=== PATIENT | male | born 1960 | race Caucasian/White ===

== ENCOUNTER 2016-12-19 04:58 | Emergency (ER) | payer BC ==
[~2016-12-19] VITALS: Ht 170.2 cm; Wt 94.0 kg
[~2016-12-19 04:58] MED LIST: ALBU1AER9 PO; FEXO1TAB46 PO; IBUP-1050 PO; MULTTAB5 PO; OMEP20CA9 PO
[2016-12-19 05:01] VITALS: TEMP 36.5; Ht 170.2 cm; Wt 94.0 kg
[2016-12-19] MEDS ORDERED: ONDANSETRON INJ 2 MG/ML 2 ML VIAL IV STA (05:18)
[2016-12-19] MEDS ORDERED: KETOROLAC TROMETHAMINE 30 MG/ML VIAL IV STA (05:18)
[2016-12-19] MEDS ORDERED: SODIUM CHLORIDE 0.9% 1000ML 1,000 ML IV ONE (05:30)
[2016-12-19 05:36] LABS: BASO % 0.5 %; BASO ABS # 0.03 K/uL (0-0.2); COMPLETE YES; EOS % 5.6 %; HEMATOCRIT 45.3 % (42-52); IG% 0.3 %; LYMPH % 26.6 %; LYMPH ABS # 1.67 K/uL (1.2-3.4); MEAN CELL VOLUME 88.3 fL (80-100); MEAN CORPUSCULAR HGB CONC 35.1 g/dl (32-36); MEAN PLATELET VOLUME 9.8 fL (7.4-10.4); MONO % 11.3 %; NEUT % 55.7 %; PLATELET COUNT 207 K/uL (130-400); RED BLOOD COUNT 5.13 M/uL (4.7-6.1); WHITE BLOOD COUNT 6.28 K/uL (4.8-10.8)
[2016-12-19 05:44] LABS: BUN/CREATININE RATIO 16.6 (10-20); CALCIUM 8.6 mg/dl (8.5-10.1); CREATININE 0.88 mg/dl (0.60-1.40); POTASSIUM 4.1 mmol/L (3.5-5.1)
[2016-12-19 05:46] LABS: ALB/GLOB RATIO 1.3 (0.9-2)
[2016-12-19 06:45] LABS: URINE APPEARANCE TURBID (CLEAR); URINE COLOR DK YELLOW; URINE NITRITE NEG (NEG); URINE SPECIFIC GRAVITY 1.038 (1.000-1.030); UROBILINOGEN NEG (NEG); ZZUR CULT IF INDIC CLEAN CATCH NO
[2016-12-19 06:53] LABS: MANUAL MICROSCOPIC REQUIRED? NO; REVIEW REQ? YES; URINE BILIRUBIN NEG (NEG)
--- NOTE | 2016-12-19 07:07 | DIAGNOSTIC IMAGING REPORT ---
CT SCAN OF THE ABDOMEN AND PELVIS WITHOUT IV CONTRAST CLINICAL HISTORY: Right flank pain. COMPARISON STUDY: KUB dated 03/12/2014. TECHNIQUE: CT scan of the abdomen and pelvis is performed from the lung bases to the proximal femora. Images are reviewed in the axial, sagittal, and coronal planes. IV contrast was not administered for this examination as per the referring clinician. Automated dose control exposure was utilized. CT DOSE: 1322.33 mGy.cm FINDINGS: Lung bases: The heart is top normal in size and without pericardial effusion. The lung bases are clear. There is a tiny hiatal hernia. Liver: The unenhanced liver enlarged measuring 19.3 cm in length. The liver demonstrates diminished attenuation consistent with hepatic steatosis. Fatty sparing is noted adjacent to gallbladder fossa. There is no intrahepatic biliary ductal dilatation. Gallbladder: Unremarkable. Spleen: Normal in size and attenuation. Pancreas: Unremarkable. Adrenal glands: Unremarkable. Kidneys: The unenhanced kidneys are normal in size. There is a 7 mm obstructing calculus in the mid right ureter seen on axial image #272 at the level of L4-L5. This causes mild right hydroureteronephrosis. There are least 2 additional nonobstructing calculi in the right kidney and a single nonobstructing calculus in the left kidney measuring up to 3 mm. There is no left-sided hydronephrosis. There is no evidence of contour deforming renal mass lesion. Abdominal vasculature: The abdominal aorta is normal in course and caliber. Bowel: The small bowel and colon are normal in course and caliber. The appendix is well-visualized and normal. Peritoneum: There is no intraperitoneal free air or abdominal ascites. There is a small fat-containing umbilical hernia. Lymphadenopathy: None. Pelvic viscera: The is decompressed and not well evaluated. The prostate and seminal vesicles are normal as imaged. Surgical clips are seen along the spermatic cord bilaterally. Skeletal structures: The skeletal structures are osteopenic. There is a mild and age indeterminant superior endplate compression deformity of L1. No lytic or blastic lesions are seen. IMPRESSION: 1. There is a 7 mm obstructing calculus in the mid right ureter. This causes mild right hydroureteronephrosis. 2. Additional bilateral nonobstructing renal calculi as above. 3. Hepatomegaly and hepatic steatosis. Electronically signed by: Mannie Spangler M.D. 12/19/2016 7:06 AM Dictated Date/Time: 12/19/2016 6:57 AM
[2016-12-19] MEDS ORDERED: OXYCODONE IR HOME PACK PO ONE (07:30)
[2016-12-19] MEDS ORDERED: TAMS0.4C38 PO (07:30)
[2016-12-19] MEDS ORDERED: ONDANSETRON HOME PACK 4MG OD TAB PO ONE (07:30)
[2016-12-19] MEDS ORDERED: OXYC1TAB3 PO (07:30)
[2016-12-19] MEDS ORDERED: ONDA4TAB10 SL (07:30)
[2016-12-19 07:54] VITALS: BP 119/82; PULSE 70; O2SAT 99
--- NOTE | 2016-12-20 05:01 | EMERGENCY ROOM VISIT NOTE ---
History First contact with patient: 05:10 Chief Complaint: KIDNEY STONE Stated Complaint: KIDNEY STONE History of Present Illness The patient is a 56 year old male who presents to the Emergency Room with complaints of right flank pain worsening over the past one to 2 days. The patient reports a past history of kidney stones, and states this feels similar. He started having some dysuria symptoms but no gross hematuria. His pain does radiate from his right flank to his right groin. No fever or chills. No chest pain, chest tightness, or shortness of breath. The patient has not had relief with [id number]-licodvs analgesics. He considers himself otherwise usually healthy and states this pain as a colicky 8/10 at the worst. Review of Systems More than 10 systems were reviewed and otherwise negative with the exception of history of present illness. Past Medical/Surgical History Medical Problems: (1) Esophageal Reflux Family History Cancer Diabetes mellitus Kidney disease Kidney stones Social History Smoking Status: Never Smoker Alcohol Use: occasionally Marital Status: Housing Status: lives with family Occupation Status: employed Current/Historical Medications Scheduled Multiple Vitamins W/ Minerals (Centrum), 1 TAB PO DAILY Omeprazole (Prilosec), 20 MG PO DAILY Ondasetron Odt (Zofran Odt), 4 MG SL Q6H Oxycodone Immediate Rel Tab (Roxicodone Ir), 1-2 TAB PO Q6 Tamsulosin Hcl (Flomax), 0.4 MG PO DAILY Allergies Uncoded Allergies: SWORDFISH,MARLIN (Allergy, Severe, TONGUE SWELLS, 12/19/16) Physical Exam Vital Signs Date Time Temp Pulse Resp B/P (MAP) Pulse Ox O2 Delivery O2 Flow Rate FiO2 12/19/16 07:54 70 19 119/82 99 12/19/16 06:39 73 19 136/90 99 Room Air 12/19/16 05:01 36.5 66 18 149/99 96 Room Air Pain Rating (0-10): 2.0 Physical Exam VITALS: Vitals are noted on the nurse's note and reviewed by myself. Vital signs stable. GENERAL: Well-developed, well-nourished, white male, who is pacing in the emergency department room. He appears quite uncomfortable on presentation. HEAD: Normocephalic atraumatic. HEART: Regular rate and rhythm without murmurs gallops or rubs. LUNGS: Clear to auscultation bilaterally without wheezes, rales or rhonchi. No retractions or accessory muscle use. ABDOMEN: Positive normal bowel sounds x 4. Soft, nontender, without masses or organomegaly. No guarding or rebound tenderness. No CVA tenderness. MUSCULOSKELETAL: No muscle atrophy, erythema, or edema noted. Full range of motion without joint tenderness in all extremities. Medical Decision & Procedures ER Provider Diagnostic Interpretation: CT SCAN OF THE ABDOMEN AND PELVIS WITHOUT IV CONTRAST CLINICAL HISTORY: Right flank pain. COMPARISON STUDY: KUB dated 03/12/2014. TECHNIQUE: CT scan of the abdomen and pelvis is performed from the lung bases to the proximal femora. Images are reviewed in the axial, sagittal, and coronal planes. IV contrast was not administered for this examination as per the referring clinician. Automated dose control exposure was utilized. CT DOSE: 1322.33 mGy.cm FINDINGS: Lung bases: The heart is top normal in size and without pericardial effusion. The lung bases are clear. There is a tiny hiatal hernia. Liver: The unenhanced liver enlarged measuring 19.3 cm in length. The liver demonstrates diminished attenuation consistent with hepatic steatosis. Fatty sparing is noted adjacent to gallbladder fossa. There is no intrahepatic biliary ductal dilatation. Gallbladder: Unremarkable. Spleen: Normal in size and attenuation. Pancreas: Unremarkable. Adrenal glands: Unremarkable. Kidneys: The unenhanced kidneys are normal in size. There is a 7 mm obstructing calculus in the mid right ureter seen on axial image #272 at the level of L4-L5. This causes mild right hydroureteronephrosis. There are least 2 additional nonobstructing calculi in the right kidney and a single nonobstructing calculus in the left kidney measuring up to 3 mm. There is no left-sided hydronephrosis. There is no evidence of contour deforming renal mass lesion. Abdominal vasculature: The abdominal aorta is normal in course and caliber. Bowel: The small bowel and colon are normal in course and caliber. The appendix is well-visualized and normal. Peritoneum: There is no intraperitoneal free air or abdominal ascites. There is a small fat-containing umbilical hernia. Lymphadenopathy: None. Pelvic viscera: The is decompressed and not well evaluated. The prostate and seminal vesicles are normal as imaged. Surgical clips are seen along the spermatic cord bilaterally. Skeletal structures: The skeletal structures are osteopenic. There is a mild and age indeterminant superior endplate compression deformity of L1. No lytic or blastic lesions are seen. IMPRESSION: 1. There is a 7 mm obstructing calculus in the mid right ureter. This causes mild right hydroureteronephrosis. 2. Additional bilateral nonobstructing renal calculi as above. 3. Hepatomegaly and hepatic steatosis. Laboratory Results 12/19/16 05:14 Red Blood Count 5.13, Mean Corpuscular Volume 88.3, Mean Corpuscular Hemoglobin 31.0, Mean Corpuscular Hemoglobin Concent 35.1, Mean Platelet Volume 9.8, Neutrophils (%) (Auto) 55.7, Lymphocytes (%) (Auto) 26.6, Monocytes (%) (Auto) 11.3, Eosinophils (%) (Auto) 5.6, Basophils (%) (Auto) 0.5, Neutrophils # (Auto ) 3.50, Lymphocytes # (Auto) 1.67, Monocytes # (Auto) 0.71, Eosinophils # (Auto ) 0.35, Basophils # (Auto) 0.03 12/19/16 05:14 Test 12/19/16 05:14 White Blood Count 6.28 K/uL (4.8-10.8) Red Blood Count 5.13 M/uL (4.7-6.1) Hemoglobin 15.9 g/dL (14.0-18.0) Hematocrit 45.3 % (42-52) Mean Corpuscular Volume 88.3 fL (80-100) Mean Corpuscular Hemoglobin 31.0 pg (25-34) Mean Corpuscular Hemoglobin Concent 35.1 g/dl (32-36) Platelet Count 207 K/uL (130-400) Mean Platelet Volume 9.8 fL (7.4-10.4) Neutrophils (%) (Auto) 55.7 % Lymphocytes (%) (Auto) 26.6 % Monocytes (%) (Auto) 11.3 % Eosinophils (%) (Auto) 5.6 % Basophils (%) (Auto) 0.5 % Neutrophils # (Auto) 3.50 K/uL (1.4-6.5) Lymphocytes # (Auto) 1.67 K/uL (1.2-3.4) Monocytes # (Auto) 0.71 K/uL (0.11-0.59) Eosinophils # (Auto) 0.35 K/uL (0-0.5) Basophils # (Auto) 0.03 K/uL (0-0.2) RDW Standard Deviation 39.2 fL (36.4-46.3) RDW Coefficient of Variation 12.3 % (11.5-14.5) Immature Granulocyte % (Auto) 0.3 % Immature Granulocyte # (Auto) 0.02 K/uL (0.00-0.02) Urine Color DK YELLOW Urine Appearance TURBID (CLEAR) Urine pH 5.0 (4.5-7.5) Urine Specific [place] 1.038 (1.000-1.030) Urine Protein 1+ (NEG) Urine Glucose (UA) NEG (NEG) Urine Ketones TRACE (NEG) Urine Occult Blood 3+ (NEG) Urine Nitrite NEG (NEG) Urine Bilirubin NEG (NEG) Urine Urobilinogen NEG (NEG) Urine Leukocyte Esterase NEG (NEG) Urine WBC (Auto) 1-5 /hpf (0-5) Urine RBC (Auto) >30 /hpf (0-4) Urine Hyaline Casts (Auto) 1-5 /lpf (0-5) Urine Epithelial Cells (Auto) 5-10 /lpf (0-5) Urine Bacteria (Auto) NEG (NEG) Urine Crystals See comments (NONE PRSENT) Urine Pathogenic Casts /lpf (0) Anion Gap 4.0 mmol/L (3-11) Est Creatinine Clear Calc Drug Dose 103.7 ml/min Estimated GFR () 112.1 Estimated GFR (Non- 96.7 BUN/Creatinine Ratio 16.6 (10-20) Calcium Level 8.6 mg/dl (8.5-10.1) Total Bilirubin 0.5 mg/dl (0.2-1) Aspartate Amino Transf (AST/SGOT) 21 U/L (15-37) Alanine Aminotransferase (ALT/SGPT) 36 U/L (12-78) Alkaline Phosphatase 73 U/L (45-117) Total Protein 7.4 gm/dl (6.4-8.2) Albumin 4.2 gm/dl (3.4-5.0) Globulin 3.2 gm/dl (2.5-4.0) Albumin/Globulin Ratio 1.3 (0.9-2) Lipase 143 U/L (73-393) Medications Administered Medications (Trade) Dose Ordered Sig/Yamila Route Start Time Stop Time Status Last Admin Dose Admin Sodium Chloride 1,000 ml @ 999 mls/hr Q1H1M ONCE IV 12/19/16 05:30 12/19/16 06:30 DC 12/19/16 05:41 999 MLS/HR Ketorolac Tromethamine (Toradol Inj) 30 mg NOW STAT IV 12/19/16 05:18 12/19/16 05:20 DC 12/19/16 05:41 30 MG Ondansetron HCl (Zofran Inj) 4 mg NOW STAT IV 12/19/16 05:18 12/19/16 05:20 DC 12/19/16 05:41 4 MG Ondansetron HCl (ZOFRAN ODT 4MG Home Pack) 1 homepack UD ONCE PO 12/19/16 07:30 12/19/16 07:31 DC 12/19/16 07:50 1 HOMEPACK Oxycodone HCl (Roxicodone Immediate Rel 5MG Home Pack) 1 homepack UD ONCE PO 12/19/16 07:30 12/19/16 07:31 DC 12/19/16 07:50 1 HOMEPACK ED Course Physical exam and history were performed. Nursing notes and EMR were reviewed. Patient appears to have right flank pain worsening over the past one to 2 days. His pain is colicky in nature, and clinically he is concerning for a ureteral calculi. IV access was established and labs were obtained. I offered multiple pain medications to the patient, and he was amenable to Toradol. CT scan was performed. The patient's blood work is as above and was reviewed. He does not have a significantly elevated white blood cell count, gross anemia, bandemia, or significant electrolyte imbalance. Lipase and transaminases were nondiagnostic. Urine is with blood but no obvious infection. The patient CT scan does confirm a 7 mm mid ureter calculi. I discussed options of care at the patient including admission to the hospital for pain control and possible urology evaluation. The patient felt comfortable with discharge home and outpatient urology care. The patient will be given a urine Sylvie as well as a course of OxyIR, Zofran, and Flomax. He was thoroughly invited back to the emergency department with any new, worsening, or concerning symptoms. He voiced understanding of this plan and rated his discomfort a 1/10 at the time of departure. The chart was completed utilizing [employer] Speech Voice Recognition Software. Grammatical errors, random word insertions, pronoun errors, and incomplete sentences are an occasional consequence of this system due to software limitations, ambient noise, and hardware issues. Any formal questions or concerns about the content, text, or information contained within the body of this dictation should be directly addressed to the provider for clarification. . Medical Decision Differential diagnosis: Etiologies such as renal colic, appendicitis, diverticulitis, mesenteric ischemia, aortic pathology, infections, inflammatory bowel disease, PUD, biliary pathology, UTI, as well as others were entertained. Impression Primary Impression: Right ureteral calculus Departure Information Dispostion Home / Self-Care Condition GOOD Prescriptions Tamsulosin Hcl (FLOMAX) 0.4 Mg Cap 0.4 MG PO DAILY for 7 Days, #7 CAP Prov: Jovany Ritter PA-C 12/19/16 Ondasetron Odt (ZOFRAN ODT) 4 Mg Tab 4 MG SL Q6H for Nausea, #12 TAB Initial treatment Prov: Jovany Ritter PA-C 12/19/16 Oxycodone Immediate Rel Tab (ROXICODONE IR) 5 Mg Tab 1-2 TAB PO Q6 for Pain, #24 TAB Initial treatment Prov: Jovany Ritter PA-C 12/19/16 Referrals Toby Oshea M.D. Forms HOME CARE DOCUMENTATION FORM, IMPORTANT VISIT INFORMATION Patient Instructions My [facility] Additional Instructions You were seen and evaluated today on an emergency basis only. This is not a substitute for, or an effort to provide, complete comprehensive medical care. It is not possible to recognize and treat all injuries or illnesses in a single emergency department visit. For this reason it is recommended that you followup with Urology, Dr. Oshea's office, by telephone tomorrow morning to arrange a follow-up appointment. Let them know you were seen in the emergency department to help facilitate care. For baseline pain relief you may alternate ibuprofen and acetaminophen every 4 hours for pain control. Take 600 mg ibuprofen (Advil) and then 4 hours later take 1000 mg acetaminophen (Tylenol). Do not take more than 3000 mg acetaminophen in a single day. Oxycodone (OxyIR) 5mg: Take ONE or TWO pills every SIX hours for breakthrough pain. Avoid alcohol, operating machinery or dangerous equipment, working on ladders or roofs, DRIVING, or situations where being under the influence may be dangerous. It is recommended to use an zeva-bal-dtgtaxi stool softener such as Colace, 100mg twice daily while taking this medication to avoid constipation. Zofran 1 tablet every 6 hrs as needed for nausea. Take Flomax once daily Strain your urine. If you are able to capture the stone take this with you to see urology. You are welcome to return to the emergency department anytime with new, worsening, or concerning symptoms.
[2016-12-28] MEDS ORDERED: [UNRECOGNIZED DRUG - OTHER] PO (07:43)
== END 2016-12-19 07:55 | disposition home or self-care (01) ==
LOC: C.EDB 04:59
DX: N20.1 Calculus of ureter (principal); K21.9 Gastro-esophageal reflux disease without esophagitis; Z80.9 Family history of malignant neoplasm, unspecified; Z83.3 Family history of diabetes mellitus; Z84.1 Family history of disorders of kidney and ureter; Z79.899 Other long term (current) drug therapy

== ENCOUNTER → 2016-12-24 | Outpatient (CLI) | payer BC ==
[~2016-12-24] MED LIST changes: -ALBU1AER9 PO; -FEXO1TAB46 PO; -IBUP-1050 PO; +ONDA4TAB10 SL; +OXYC1TAB3 PO; +TAMS0.4C38 PO; +[UNRECOGNIZED DRUG - OTHER] PO
--- NOTE | 2016-12-24 19:03 | DIAGNOSTIC IMAGING REPORT ---
CHEST 2 VIEWS ROUTINE CLINICAL HISTORY: Nephrolithiasis COMPARISON STUDY: 02/28/2014 FINDINGS: The cardiac and mediastinal contours are normal. There is no evidence of focal pulmonary consolidation. There is no evidence of failure. No pleural effusions are visualized.[ IMPRESSION: No active disease in the chest. Electronically signed by: Sina Mccauley M.D. 12/24/2016 7:01 PM Dictated Date/Time: 12/24/2016 7:01 PM
--- NOTE | 2016-12-24 19:04 | DIAGNOSTIC IMAGING REPORT ---
KUB CLINICAL HISTORY: Nephrolithiasis. FINDINGS: 2 AP supine abdominal radiographs are compared to study dated 03/12/2014 and correlated with abdominal CT dated 12/19/2016. There is a nonobstructed abdominal bowel gas pattern noting moderate colonic fecal retention. A 5 mm right ureteral calculus has not significantly changed from 12/19/2016. This projects below the right transverse process of L4. No additional calculi are seen projecting over either kidney or along the course of left ureter. The bony structures appear intact. IMPRESSION: Unchanged appearance of a 5 mm right ureteral calculus as compared to 12/19/2016. Electronically signed by: Mannie Spangler M.D. 12/24/2016 7:02 PM Dictated Date/Time: 12/24/2016 7:00 PM
== END | disposition home or self-care (01) ==
LOC: C.CPL 17:34
PROVIDERS: ATTEND Urology
DX: N20.0 Calculus of kidney (principal)

== ENCOUNTER → 2016-12-30 | Outpatient (CLI) | payer BC ==
[~2016-12-30] MED LIST changes: -ONDA4TAB10 SL; -OXYC1TAB3 PO; -TAMS0.4C38 PO
--- NOTE | 2016-12-30 18:40 | DIAGNOSTIC IMAGING REPORT ---
KUB CLINICAL HISTORY: Nephrolithiasis. FINDINGS: 2 AP supine abdominal radiographs are compared to study dated 12/24/2016 and correlated with abdominal CT dated 12/19/2016. There is a nonobstructed abdominal bowel gas pattern noting moderate colonic fecal retention. A 5 mm right ureteral calculus has not significantly changed in position. This projects below the right transverse process of L4. No additional calculi are seen projecting over either kidney or along the course of the left ureter. The bony structures appear intact. IMPRESSION: Unchanged appearance of a 5 mm right ureteral calculus as compared to 12/24/2016. Electronically signed by: Mannie Spangler M.D. 12/30/2016 6:39 PM Dictated Date/Time: 12/30/2016 6:38 PM
== END | disposition home or self-care (01) ==
LOC: C.RAD 18:20
PROVIDERS: ATTEND Urology
DX: N20.1 Calculus of ureter (principal)

== ENCOUNTER → 2016-12-31 | Day surgery (SDC) | payer BC ==
[2016-12-28 07:43] VITALS: Ht 170.2 cm; Wt 93.2 kg
[~2016-12-31] VITALS: Ht 170.2 cm; Wt 93.2 kg
[~2016-12-31] MED LIST changes: +ATROPINE SULFATE 0.1 MG/ML 5ML SYR IV PRN; +CIPROFLOXACIN 400MG / D5W IV SCH; +EpHEDrine SULFATE INJ 50 MG/ML AMP IV PRN; +FENTANYL CITRATE INJ 50 MCG/1 ML 2 ML VIAL IV PRN; +FENTANYL CITRATE INJ 50 MCG/1 ML 2 ML VIAL ONE; +LACTATED RINGER'S 1000ML 1,000 ML IV SCH; +LIDOCAINE HCL 2% 2 ML VIAL (20MG/ML) ONE; +MIDAZOLAM HCL 1 MG/ML 2ML VIAL ONE; +ONDANSETRON INJ 2 MG/ML 2 ML VIAL IV PRN; +ONDANSETRON INJ 2 MG/ML 2 ML VIAL ONE; +OXYCODONE/ACETAMINOPHEN 5-325 TAB PO PRN; +PROMETHAZINE HCL INJ 6.25 MG in SODIUM CHLORIDE 0.9% 50ML 50 ML IV PRN; +PROPOFOL IV EMULSION 10 MG/ML 20 ML VIAL IV ONE
--- NOTE | 2016-12-31 08:30 | History & Physical Bridge Note ---
H&P Re-Evaluation Bridge Note: I have examined the patient, reviewed the History & Physical and in the interval since the performance of the History & Physical I have noted the following changes of clinical significance: No changes noted
--- NOTE | 2016-12-31 09:46 | Discharge Instructions ---
Discharge Instructions Date of Service Dec 31, 2016. Admission Reason for Admission: Right Stones Discharge Discharge Diagnosis / Problem: R ureteral stone s/p ESWL Discharge Goals Goal(s): Decrease discomfort, Improve function, Improve disease control, Therapeutic intervention Activity Recommendations Activity Limitations: as noted below Lifting Limitations: no more than 25 pounds, gradually increase as tolerated ( x 3 days) Exercise/Sports Limitations: rest today, gradually increase as tolerated (x 3 days) May Resume Sexual Activity: when tolerated Shower/Bathe: no limitations Driving or Machine Use: resume 1 day after discharge . Instructions / Follow-Up Instructions / Follow-Up Strain urine as instructed, bring fragments in to follow-up visit Follow-up visit as scheduled with KUB Xray beforehand Discharge Diet Recommended Diet: Regular Diet (good fluid intake) Procedures Procedures Performed: R ureteral ESWL Pending Studies Studies pending at discharge: no Medical Emergencies . Who to Call and When: Medical Emergencies: If at any time you feel your situation is an emergency, please call 911 immediately. . Non-Emergent Contact Non-Emergency issues call your: Urologist Call Non-Emergent contact if: you have a fever, temperature is above 101, your pain is not controlled, your pain is worsening, your pain is unusual for you, your pain is concerning you . . "Provider Documentation" section prepared by Amol Wise. . VTE Core Measure Inpt VTE Proph given/why not?: SCD's
--- NOTE | 2016-12-31 09:47 | [facility] Operative Report ---
Operative Report Operative Date Dec 31, 2016. Pre-Operative Diagnosis R ureteral stone Post-Operative Diagnosis Same Procedure(s) Performed R ureteral ESWL Surgeon Frandy Ortiz Bait Man Surgeon(s) NA Estimated Blood Loss NA Findings Excellent stone fragmentation on fluoro intraop Specimens NA Drains NA Anesthesia GALMA Complication(s) None Disposition Recovery Room / PACU Indications Right ureteral stone Description of Procedure The patient was brought to the litho suite. He was correctly identified and the stone was visualized on his most recent x-rays. After the correct time out was performed the patient was positioned over the therapy head. An adequate level of anesthesia was administered. The extracorporeal shockwave lithotripsy treatment was then commenced. Please see the [place] [facility] sheet for complete treatment summary. After completion of the procedure the patient was taken to the recovery room in stable condition. I attest to the content of the Intraoperative Record and any orders documented therein. Any exceptions are noted below. I attest to the content of the Intraoperative Record and any orders documented therein. Any exceptions are noted below.
--- NOTE | 2016-12-31 10:37 | [facility] Post Operative Brief Note ---
Immediate Operative Summary Operative Date Dec 31, 2016. Pre-Operative Diagnosis R ureteral stone Post-Operative Diagnosis Same Procedure(s) Performed Right Extracorporeal Shock Wave Lithotripsy Surgeon Frandy Ortiz Product Design Specialist Surgeon(s) NA Estimated Blood Loss NA Findings Excellent stone fragmentation on fluoro Specimens NA Drains NA Anesthesia GALMA Complication(s) None Disposition Recovery Room / PACU
[2016-12-31 11:42] VITALS: TEMP 36.6
--- NOTE | 2016-12-31 11:50 | Anesthesiology Progress Note ---
Anesthesia Post Op Note Date & Time Dec 31, 2016 at 11:50 Vital Signs Pain Intensity: 3 Vital Signs Past 12 Hours Date Time Temp Pulse Resp B/P (MAP) Pulse Ox O2 Delivery O2 Flow Rate FiO2 12/31/16 11:42 36.6 50 131/88 (102) 98 Room Air 12/31/16 11:26 139/93 12/31/16 11:23 56 8 12/31/16 11:23 55 8 92 12/31/16 11:22 56 12 12/31/16 11:22 54 12 93 12/31/16 11:21 128/96 12/31/16 11:18 55 6 12/31/16 11:18 54 6 93 12/31/16 11:17 36.6 94 Room Air 12/31/16 11:16 132/92 12/31/16 11:13 58 9 12/31/16 11:13 57 9 95 12/31/16 11:12 56 8 93 12/31/16 11:12 57 8 12/31/16 11:11 120/93 12/31/16 11:07 59 12 95 12/31/16 11:07 60 12 12/31/16 11:06 130/92 12/31/16 11:02 62 13 12/31/16 11:02 62 13 12/31/16 11:01 113/90 12/31/16 10:57 58 12 12/31/16 10:57 57 12 98 12/31/16 10:56 113/81 12/31/16 10:52 61 12 12/31/16 10:52 62 12 98 12/31/16 10:51 111/78 12/31/16 10:48 116/82 12/31/16 10:47 36.4 68 16 116/82 98 Mask 6 12/31/16 08:41 36.7 65 16 128/85 (99) 96 Room Air Notes Mental Status: alert / awake / arousable, participated in evaluation Pt Amnestic to Procedure: Yes Nausea / Vomiting: adequately controlled Pain: adequately controlled Airway Patency, RR, SpO2: stable & adequate BP & HR: stable & adequate Hydration State: stable & adequate Anesthetic Complications: no major complications apparent
[2016-12-31 12:03] VITALS: BP 135/86; PULSE 52; O2SAT 96
--- NOTE | 2016-12-31 12:13 | Anesthesia Progress Nt - [facility] ---
Anesthesia Post Op Note Date & Time Dec 31, 2016 at 12:12 Vital Signs Pain Intensity: 3 Vital Signs Past 12 Hours Date Time Temp Pulse Resp B/P (MAP) Pulse Ox O2 Delivery O2 Flow Rate FiO2 12/31/16 12:03 52 135/86 (102) 96 Room Air 12/31/16 11:42 36.6 50 131/88 (102) 98 Room Air 12/31/16 11:26 139/93 12/31/16 11:23 56 8 12/31/16 11:23 55 8 92 12/31/16 11:22 56 12 12/31/16 11:22 54 12 93 12/31/16 11:21 128/96 12/31/16 11:18 55 6 12/31/16 11:18 54 6 93 12/31/16 11:17 36.6 94 Room Air 12/31/16 11:16 132/92 12/31/16 11:13 58 9 12/31/16 11:13 57 9 95 12/31/16 11:12 56 8 93 12/31/16 11:12 57 8 12/31/16 11:11 120/93 12/31/16 11:07 59 12 95 12/31/16 11:07 60 12 12/31/16 11:06 130/92 12/31/16 11:02 62 13 12/31/16 11:02 62 13 12/31/16 11:01 113/90 12/31/16 10:57 58 12 12/31/16 10:57 57 12 98 12/31/16 10:56 113/81 12/31/16 10:52 61 12 12/31/16 10:52 62 12 98 12/31/16 10:51 111/78 12/31/16 10:48 116/82 12/31/16 10:47 36.4 68 16 116/82 98 Mask 6 12/31/16 08:41 36.7 65 16 128/85 (99) 96 Room Air Notes Mental Status: alert / awake / arousable, participated in evaluation Pt Amnestic to Procedure: Yes Nausea / Vomiting: adequately controlled Pain: adequately controlled Airway Patency, RR, SpO2: stable & adequate BP & HR: stable & adequate Hydration State: stable & adequate Anesthetic Complications: no major complications apparent
== END | disposition home or self-care (01) ==
LOC: X.SURG 08:25
PROVIDERS: ATTEND Urology
DX: N20.1 Calculus of ureter (principal)

== ENCOUNTER → 2017-01-11 | Outpatient (CLI) | payer BC ==
[~2017-01-11] MED LIST changes: -ATROPINE SULFATE 0.1 MG/ML 5ML SYR IV PRN; -CIPROFLOXACIN 400MG / D5W IV SCH; -EpHEDrine SULFATE INJ 50 MG/ML AMP IV PRN; -FENTANYL CITRATE INJ 50 MCG/1 ML 2 ML VIAL IV PRN; -FENTANYL CITRATE INJ 50 MCG/1 ML 2 ML VIAL ONE; -LACTATED RINGER'S 1000ML 1,000 ML IV SCH; -LIDOCAINE HCL 2% 2 ML VIAL (20MG/ML) ONE; -MIDAZOLAM HCL 1 MG/ML 2ML VIAL ONE; -ONDANSETRON INJ 2 MG/ML 2 ML VIAL IV PRN; -ONDANSETRON INJ 2 MG/ML 2 ML VIAL ONE; -OXYCODONE/ACETAMINOPHEN 5-325 TAB PO PRN; -PROMETHAZINE HCL INJ 6.25 MG in SODIUM CHLORIDE 0.9% 50ML 50 ML IV PRN; -PROPOFOL IV EMULSION 10 MG/ML 20 ML VIAL IV ONE
--- NOTE | 2017-01-11 16:56 | DIAGNOSTIC IMAGING REPORT ---
KUB CLINICAL HISTORY: 56 years-old Male presenting with nephrolithiasis. TECHNIQUE: Single supine view of the abdomen was obtained. COMPARISON: 12/30/2016. FINDINGS: Previously noted calcification projecting at the L4-5 level is no longer present, likely passage of prior right ureteral calculus. Punctate calcification projecting over the right upper pole, likely correlates to the nonobstructing right renal calculus seen on recent CT. Moderate stool burden mildly degrades evaluation. No gross pneumoperitoneum. Nonobstructive bowel gas pattern. Osseous structures normal. IMPRESSION: 1. Apparent passage of the previously noted right ureteral calculus. Punctate calculus noted at the right upper pole the kidney. Electronically signed by: Esteban Neal M.D. 01/11/2017 4:54 PM Dictated Date/Time: 01/11/2017 4:52 PM
== END | disposition home or self-care (01) ==
LOC: C.RAD 16:23
PROVIDERS: ATTEND Urology
DX: N20.0 Calculus of kidney (principal)

== ENCOUNTER → 2017-01-12 | Outpatient (CLI) | payer BC | END | disposition home or self-care (01) | LOC: C.LABSPEC 17:03 | PROVIDERS: ATTEND Urology | DX: N20.0 Calculus of kidney (principal) ==